=== PATIENT | male | born 1960 | race Caucasian/White ===

== ENCOUNTER 2018-09-22 07:52 | Emergency (ER) | payer BC ==
[2018-09-22 08:13] VITALS: BP 173/100
--- NOTE | 2018-09-22 09:07 | UC ---
Cardiac HPI - HPI Summary HPI Summary: 58-year-old male comes in with a chief complaint of left-sided chest pain. This started 2 days ago when as he was getting up from his chair he tripped and fell and fell onto wooden furniture. Should pain right away. It pain is worse with taking a deep breath. Been taking Aleve which helped some with the pain. No shortness of breath no fevers. Eating and drinking fine no abdominal pain has not seen any blood in his urine. - History of Current Complaint Chief Complaint: UCTrauma Stated Complaint: FELL RIB PAIN Time Seen by Provider: 09/22/18 08:45 Pain Intensity: 8 - Allergy/Home Medications Allergies/Adverse Reactions: Allergies Allergy/AdvReac Type Severity Reaction Status Date / Time No Known Allergies Allergy Verified 09/22/18 08:12 Home Medications: Home Medications Cetirizine HCl [Zyrtec] 1 tab PO DAILY 09/22/18 [History Confirmed 09/22/18] PMH/Surg Hx/FS Hx/Imm Hx Previously Healthy: Yes Endocrine History: Dyslipidemia Cardiovascular History: Hypertension - Surgical History Surgical History: Yes Surgery Procedure, Year, and Place: carpal tunnel - Family History Known Family History: Positive: Non-Contributory - Social History Alcohol Use: Occasionally Substance Use Type: None Smoking Status (MU): Never Smoked Tobacco Review of Systems All Other Systems Reviewed And Are Negative: Yes Constitutional: Positive: Negative Skin: Positive: Bruising Eyes: Positive: Negative Respiratory: Positive: Other - see hpi Cardiovascular: Positive: Chest Pain Gastrointestinal: Positive: Negative Genitourinary: Negative: Hematuria Motor: Positive: Negative Neurovascular: Positive: Negative Musculoskeletal: Positive: Negative Neurological: Positive: Negative Psychological: Positive: Negative Is Patient Immunocompromised?: No Physical Exam Triage Information Reviewed: Yes Appearance: Well-Appearing, No Pain Distress, Well-Nourished Vital Signs: Initial Vital Signs Temp 98.2 F 09/22/18 08:07 Pulse 72 09/22/18 08:07 Resp 18 09/22/18 08:07 BP 173/100 09/22/18 08:07 Pulse Ox 97 09/22/18 08:07 Vital Signs Reviewed: Yes Eye Exam: Normal Eyes: Positive: Conjunctiva Clear Neck: Positive: Supple Respiratory: Positive: Lungs clear, Normal breath sounds, No respiratory distress, Other: - Tender to palpation with 6cm diameter eccymosis left posterior lateral chest. Cardiovascular: Positive: RRR Abdomen Description: Positive: Nontender Musculoskeletal Exam: Normal Musculoskeletal: Positive: Strength Intact, ROM Intact Neurological Exam: Normal Neurological: Positive: Alert, Muscle Tone Normal Psychological: Positive: Normal Response To Family, Age Appropriate Behavior Skin: Positive: Other - Tender to palpation with 6cm diameter eccymosis left posterior lateral chest. - Assessment/Plan Course Of Treatment: Patient Name: BEVERLY PATRICIO Medical Record#: [id number] Ordering Physician: Christo Davis MD Acct.#: [id number] : 1960 Age: 58 Sex: M Location: [facility] Exam Date: 09/22/18816 ADM Status: REG ER Order Information: RIBS LT UNI W/PA CH MIN 3 VWS Accession Number: [id number] CPT: 10309 Indication: Left chest injury. 3 views of the left ribs including PA view of the chest demonstrates fracture of the left ninth rib. Slight deformities of the eighth and 10th ribs are noted and underlying fracture is not totally excluded. No pneumothorax is noted. IMPRESSION: Fracture of the left ninth rib. Slight deformity of the left eighth rib with underlying fracture possible. There may also be a fracture of the left 10th rib. No pneumothorax is noted. <Electronically signed by Shaunna Mandujano MD in OV> 09/22/18 0849 I discussed the x-rays with the patient. There is a fracture of the left ninth rib. Possible fractures of the eighth and 10th also but nondisplaced. No pneumothorax. Patient's vital signs are stable is not short of breath. He started taking leave the plan is to keep taking the Aleve I am adding hydrocodone. Patient went home with an incentive spirometer to be used to help avoid respiratory infections and let him know that if anything got worse he needs to get reevaluated again right away. - Clinical Impression Provider Diagnosis: Left rib fracture Discharge - Sign-Out/Discharge Documenting (check all that apply): Patient Departure All imaging exams completed and their final reports reviewed: Yes - Discharge Plan Condition: Stable Disposition: HOME Prescriptions: HYDROcodone/ACETAMIN 5-325 MG* [Walker 5-325 TAB*] 1 tab PO Q4H PRN #30 tab MDD 6 PRN Reason: Pain Patient Education Materials: Rib Fracture (ED) Forms: *Work Release Referrals: Denis Burroughs MD [Primary Care Provider] - Additional Instructions: FOLLOW UP WITH YOUR DOCTOR. GET RECHECKED SOONER IF YOUR CONDITION WORSENS; PAIN, FEVER, SHORTNESS OF BREATH OR ANY QUESTIONS OR CONCERNS. USE THE INCENTIVE SPIROMETER EVERY 4 HOURS OR MORE FREQUENTLY TO HELP AVOID A RESPIRATORY INFECTION. - Billing Disposition and Condition Condition: STABLE Disposition: Home
== END 2018-09-22 09:13 | disposition home or self-care (01) ==
LOC: UCEAST 07:52
DX: S22.32XA Fracture of one rib, left side, initial encounter for closed fracture (principal); W01.190A Fall on same level from slipping, tripping and stumbling with subsequent striking against furniture, initial encounter; Y92.9 Unspecified place or not applicable
CPT/HCPCS: 99212; G0463

== ENCOUNTER → 2018-11-26 12:08 | Day surgery (SDC) | payer BC ==
[~2018-11-26 12:08] MED LIST: Buffered Lidocaine 1% SYRIN* 1 ML/SYRINGE INTRADERM ONE; Dexamethasone IV* 4 MG/ML 1 ML (4 MG) ONE; HYDROmorphone INJ1* 1 MG/ML SYRINGE ONE; Ketorolac INJ* 30 MG/ML 1 ML VIAL ONE; Lactated Ringers 1000 ML Bag* 1,000 ML IV SCH; Lidocaine 2% PF * 5 ML VIAL ONE; Midazolam* 1 MG/ML 2 ML VIAL (2 MG) ONE; Naloxone* 0.4 MG/ML 1 ML VIAL IV PRN; Ondansetron INJ* 2 MG/ML VIAL ONE; Propofol* 10 MG/ML 20 ML BTL ONE; Ropivacaine 0.2% * 2 MG/ML VIAL ONE; ceFAZolin 2 GM in NS PREMIX(*) 2 GM/100 ML BAG IVPB ONE; fentaNYL* 50 MCG/ML 2 ML VIAL (100 MCG VIAL) ONE; oxyCODONE/Acetamin 5/325 MG* TAB ONE
[2018-11-26] MEDS: HYDROmorphone INJ1* 1 MG/ML SYRINGE IV PRN ×4 (16:43→17:00)
[2018-11-26] MEDS: oxyCODONE/Acetamin 5/325 MG* TAB PO PRN ×2 (16:45→16:46)
[2018-11-26 18:03] VITALS: BP 144/94
--- NOTE | 2018-11-27 00:54 | OP ---
CC: PCP * DATE OF OPERATION: 11/26/18 - [facility] DATE OF : 60 SURGEON: Deirdre Berman MD HEAD OF ADVERTISING: BENY Casanova. An physician assistant certified was needed for the entirety of the case to help with positioning, retraction, and utilized throughout all portion of the case. ANESTHESIOLOGIST: Dr. Wilkerson. ANESTHESIA: General. PRE-OP DIAGNOSIS: Right lateral tibial plateau fracture. POST-OP DIAGNOSES: 1. Right lateral tibial plateau fracture. 2. Intact lateral collateral ligament as well as intact lateral meniscus. OPERATIVE PROCEDURE: Open reduction of right lateral plateau. COMPLICATIONS: None. ESTIMATED BLOOD LOSS: Minimal. TOURNIQUET TIME: 89 minutes at 250 mmHg. INDICATIONS: Isacc Oliveros is a 58-year-old male who presents after a bony injury in early November where he landed awkwardly. He had initially a displaced fracture on the x-rays, but CT scan demonstrated it had lined up more extensively; however, there is concern that this may cause further depression. After extensive discussion of risks and benefits of surgical versus nonoperative treatment, we elected to proceed with surgical treatment. Risks and benefits were discussed at length included, but are not limited to bleeding ; infection; damage to nerves, vessels, surrounding structures; wound nonhealing ; persistent pain; need for further surgery; scarring; stiffness; incomplete relief of symptoms; risks of anesthesia; and risk of DVT. He has elected to proceed. DESCRIPTION OF PROCEDURE: The patient was greeted in the preoperative area by the attending surgeon. Correct extremity was marked and consent was confirmed. The patient was brought back to the operating suite where he was placed in the supine position on the operating table and underwent general anesthesia with LMA intubation, after which he was appropriately positioned on the bed. A lateral post was positioned. An unsterile tourniquet was placed high in the proximal thigh. The right leg was then prepped and draped in the usual sterile fashion beginning with chlorhexidine soap, scrub, and alcohol wipe, and a final prep with ChloraPrep. After appropriate surgical pause indicating, site, side, procedure, and administration of antibiotics, the Esmarch was used to exsanguinate the limb. The tourniquet was inflated to 250 mmHg. A lazy hockey stick incision was made with a 15- blade about the lateral aspect of the knee from proximal joint in case we needed to do biceps femoris repair or lateral collateral ligament repair extending all the way just distal to Gerdy's tubercle. The soft tissues were carefully dissected to keep a fold flap about the lateral aspect. At this point, the IT band was visualized, and it was then incised in line and then placed anterior and posterior about Gerdy's tubercle to help expose the fracture site. There was mild step-off. The submeniscal arthrotomy was then made. The meniscus was visualized. There was no obvious tearing. This was then tacked with 2-0 Ethibond sutures for later closure. The joint was visualized. Again, there was a mild step-off, and this was able to be corrected , once the lateral aspect of the tibia was exposed carefully using an elevator and Holden with care to stay on the bone, a K-wire was then placed very proximal under fluoroscopic visualization to try to keep the large piece in place. This was buried and brought through the medial aspect of the knee, and this remained until the case was done and then removed. Once adequate alignment was placed in the AP and lateral view, a 4-hole Synthes lateral plateau plate was then chosen. It was then confirmed under fluoroscopic guidance. A 3.5 nonlocking screw was then placed through the slotted hole distally to allow for fixation to the bone. Once the appropriate height was identified, then 4-0 proximal locking screws were then placed at the proximal aspect of the plateau. Care was taken down to penetrate the joint. Then, a second locking screw was then placed as a kickstand screw. Once the alignment was visualized, any K wires were removed and then joint was examined again and found to be near anatomic, the distal nonlocking screw was then placed and final images were obtained. The wounds were then copiously irrigated with sterile saline. At this point, stress views were made of the knee at 30 degrees and 0 degrees. There was no obvious opening of the lateral aspect of the knee. Decision was made to not take down and risk nerve injury to examine the biceps femoris and LCL directly as he felt stable and had no significant widening. The wounds were copiously irrigated with sterile saline. The previously passed sutures were passed through the plate and secured. The IT band and fascia was closed with 0 Vicryl. The wound was irrigated again. The subcutaneous tissues were closed with 3-0 Monocryl and the skin was closed with kassy. The wound was then injected with 0.2% ropivacaine. Sterile dressings were applied. A Cryo/Cuff and hinged knee brace was applied. He was awoken from anesthesia and transferred to the PACU in stable condition. POSTOPERATIVE PLAN: He will be non-weightbearing. He will be discharged on pain medication. DVT prophylaxis was considered and he will restart his aspirin. I will see the patient back in 10 to 14 days. He will start range of motion of the knee but he will be nonweightbearing for approximately 10 weeks. [id number]/CPS #: [id number] MTDD
== END | disposition home or self-care (01) ==
LOC: OR 12:08
PROVIDERS: ATTEND Orthopaedic Surgery
DX: S82.121A Displaced fracture of lateral condyle of right tibia, initial encounter for closed fracture (principal); X58.XXXA Exposure to other specified factors, initial encounter; Y93.89 Activity, other specified; Y92.89 Other specified places as the place of occurrence of the external cause; I10 Essential (primary) hypertension; E78.5 Hyperlipidemia, unspecified; G47.33 Obstructive sleep apnea (adult) (pediatric); K21.9 Gastro-esophageal reflux disease without esophagitis
CPT/HCPCS: 76000; A9270-GY; C1713; C1776; J0690; J1100; J1170; J1885; J2250; J2405; J2704; J2795; J3010

== ENCOUNTER 2019-03-23 12:25 | Day surgery (SDC) | payer BC ==
[~2019-03-23 12:25] MED LIST changes: +Dexamethasone IV* 4 MG/ML 1 ML (4 MG) IV SLOW PU ONE; -Dexamethasone IV* 4 MG/ML 1 ML (4 MG) ONE; +Famotidine IV* 10 MG/ML 2 ML (20 mg) IV ONE; -HYDROmorphone INJ1* 1 MG/ML SYRINGE ONE; -Ketorolac INJ* 30 MG/ML 1 ML VIAL ONE; -Lidocaine 2% PF * 5 ML VIAL ONE; -Midazolam* 1 MG/ML 2 ML VIAL (2 MG) ONE; -Naloxone* 0.4 MG/ML 1 ML VIAL IV PRN; -Ondansetron INJ* 2 MG/ML VIAL ONE; -Propofol* 10 MG/ML 20 ML BTL ONE; -Ropivacaine 0.2% * 2 MG/ML VIAL ONE; -ceFAZolin 2 GM in NS PREMIX(*) 2 GM/100 ML BAG IVPB ONE; -fentaNYL* 50 MCG/ML 2 ML VIAL (100 MCG VIAL) ONE; -oxyCODONE/Acetamin 5/325 MG* TAB ONE
[2019-03-23] MEDS ORDERED: ceFAZolin 2 GM in NS PREMIX(*) 2 GM/100 ML BAG IVPB ONE (12:34)
[2019-03-23] MEDS ORDERED: Famotidine IV* 10 MG/ML 2 ML (20 mg) ONE (12:34)
[2019-03-23] MEDS ORDERED: Dexamethasone IV* 4 MG/ML 1 ML (4 MG) ONE (12:34)
[2019-03-23] MEDS ORDERED: Bupivacaine 0.25% SDV* 30 ML ONE (14:00)
[2019-03-23] MEDS ORDERED: Lidocaine 2% PF * 5 ML VIAL ONE (14:14)
[2019-03-23] MEDS ORDERED: fentaNYL* 50 MCG/ML 2 ML VIAL (100 MCG VIAL) ONE (14:14)
[2019-03-23] MEDS ORDERED: Propofol* 10 MG/ML 20 ML BTL ONE (14:50)
[2019-03-23] MEDS ORDERED: Ondansetron INJ* 2 MG/ML VIAL ONE (14:50)
[2019-03-23] MEDS ORDERED: fentaNYL* 50 MCG/ML 2 ML VIAL (100 MCG VIAL) IV PRN (14:52)
[2019-03-23] MEDS ORDERED: DiMENhydriNATE IV* 50 MG/ML VIAL IV PUSH PRN (14:52)
[2019-03-23] MEDS ORDERED: Ketorolac INJ* 30 MG/ML 1 ML VIAL IV PRN (14:52)
[2019-03-23] MEDS ORDERED: Naloxone* 0.4 MG/ML 1 ML VIAL IV PRN (14:52)
[2019-03-23] MEDS ORDERED: Ketorolac INJ* 30 MG/ML 1 ML VIAL ONE (15:35)
[2019-03-23 15:53] VITALS: BP 133/92
--- NOTE | 2019-03-25 10:55 | OP ---
DATE OF OPERATION: 03/23/19 [facility] DATE OF : 60 SURGEON: Deirdre Berman MD CORPORATE EXECUTIVE: BENY Casanova ANESTHESIOLOGIST: Dr. Stephen ANESTHESIA: General PRE-OP DIAGNOSIS: Retained symptomatic hardware of right leg. POST-OP DIAGNOSIS: Retained symptomatic hardware of right leg. OPERATIVE PROCEDURE: Removal of hardware from right proximal tibia, 1 screw. COMPLICATIONS: None. ESTIMATED BLOOD LOSS: Minimal. TOURNIQUET TIME: 15 minutes. INDICATIONS: Isacc Oliveros is a 59-year-old male who underwent an ORIF of tibia plateau earlier this year. He was doing well and he was getting ready to go back to work, he started noticing some pain medially. CT scan was done and one of the screws is penetrating, it could be rubbing against the pes and hamstring. After extensive discussion of risks and benefits of surgical versus nonoperative treatment, he has elected to proceed with surgical treatment. Risks include but not limited to bleeding, infection, damage to nerves, vessels , surrounding structures, wound nonhealing, persistent pain, need for surgery, scaring, stiffness, incomplete relief of symptoms, risks of anesthesia, need for further surgery, risk of DVT, and elected to proceed. DESCRIPTION OF PROCEDURE: The patient was greeted in the preoperative area by the attending. The patient was brought back to the operative suite, placed in the supine position on the operating room table. He then underwent general anesthesia and LMA intubation, after which unsterile tourniquet on the proximal thigh. A beanbag was placed under his lateral buttock. The right leg was prepped and draped in the usual sterile fashion beginning with chlorhexidine soap, scrub and alcohol wipe, and a final prep with ChloraPrep. After appropriate surgical pause indicating side, site, procedures and administration of antibiotics, the C-arm was used to localize the offending screw. A small portion of the previous incision was then made and the soft tissue was carefully dissected to expose the fascia. The fascia was then excised and then blunt dissection was taken down to the medial aspect of the tibia. The screw was identified and confirmed under fluoroscopic evaluation. Then it was removed in its entirety. An image was taken again and saved to confirm. The wounds were copiously irrigated and the fascia was closed with 0- Vicryl in interrupted fashion. The skin was closed in layers with 3-0 Monocryl and 3-0 nylon. Sterile dressings were applied. The wound was superficially injected with 0.25% Marcaine. Sterile dressings were applied, a Cryo/Cuff and the patient was then awoken from anesthesia and transferred to PACU in stable condition. The extremities pinked up without issue. POSTOPERATIVE PLAN: He will be weightbearing. I want him to use crutches for the first few days and range of motion as tolerated. Discharged on pain medications and antibiotics. DVT prophylaxis was considered, but deferred due to no previous personal or family history. I will see the patient back in 10 to 14 days. [id number]/[id number] #: [id number] MTDMelanie
== END 2019-03-23 16:15 | disposition home or self-care (01) ==
LOC: OREAST 12:25
PROVIDERS: ATTEND Orthopaedic Surgery
DX: T84.84XA Pain due to internal orthopedic prosthetic devices, implants and grafts, initial encounter (principal); Y83.1 Surgical operation with implant of artificial internal device as the cause of abnormal reaction of the patient, or of later complication, without mention of misadventure at the time of the procedure; I10 Essential (primary) hypertension; M19.90 Unspecified osteoarthritis, unspecified site; E78.00 Pure hypercholesterolemia, unspecified; Z68.37 Body mass index [BMI] 37.0-37.9, adult
CPT/HCPCS: 76000; 88300; J0690; J1100; J1885; J2405; J2704; J3010; J3490